=== PATIENT | male | born 1965 ===

== ENCOUNTER 2018-03-20 16:35 | Emergency (ER) | payer BC ==
[2018-03-20 16:54] VITALS: BMI 29.7
[2018-03-20 16:59] VITALS: RESP 16; TEMP 98.9
--- NOTE | 2018-03-20 18:05 | C.PDOC ---
History Of Present Illness 52 y/o male presents to ED with c/o urinary frequency, urinary hesitation and dysuria for 2 days. Patient reports he recently had colonoscopy with negative findings and blood work that showed elevated PSA. Patient denies abdominal pain , flank pain, nausea, vomiting, diarrhea or any other complaints at this time. Time Seen by Provider: 03/20/18 17:26 Chief Complaint (Nursing): Male Genitourinary History Per: Patient History/Exam Limitations: no limitations Onset/Duration Of Symptoms: Days Current Symptoms Are (Timing): Still Present Associated Symptoms: Urinary Symptoms Past Medical History Reviewed: Historical Data, Nursing Documentation, Vital Signs Vital Signs: Last Vital Signs Temp 98.9 F 03/20/18 16:56 Pulse 84 03/20/18 16:56 Resp 16 03/20/18 16:56 BP 129/79 03/20/18 16:56 Pulse Ox 97 03/20/18 18:07 - Medical History PMH: Kidney Stones Surgical History: No Surg Hx Family History: States: No Known Family Hx - Social History Hx Alcohol Use: No Hx Substance Use: No Review Of Systems Except As Marked, All Systems Reviewed And Found Negative. Genitourinary: Positive for: Dysuria, Frequency Physical Exam - Physical Exam Appears: Non-toxic, No Acute Distress Skin: Warm, Dry, No Rash Head: Atraumatic, Normacephalic Eye(s): bilateral: Normal Inspection Oral Mucosa: Moist Cardiovascular: Rhythm Regular Respiratory: Normal Breath Sounds, No Rales, No Rhonchi, No Wheezing Gastrointestinal/Abdominal: Soft, No Tenderness, No Guarding, No Rebound Male Genital: Circumcised, Other (Patient has 1 teste noted to be descended. No complications or signs of infection) Neurological/Psych: Oriented x3, Normal Speech, Normal Cognition ED Course And Treatment - Laboratory Results Result Diagrams: 03/20/18 18:23 O2 Sat by Pulse Oximetry: 97 (RA) Pulse Ox Interpretation: Normal Medical Decision Making Medical Decision Making: Assessment: Dysuria 1900 - case s/o to Dr. Phillips at 1900 pending labs, ultrasound, reevaluation and disposition. Disposition - Disposition Disposition Time: 19:00 Condition: STABLE Forms: [facility] (Albanian) - Clinical Impression Clinical Impression: Dysuria - Scribe Statement The provider has reviewed the documentation as recorded by the Scribe Laura Ibarra All medical record entries made by the Scribe were at my direction and personally dictated by me. I have reviewed the chart and agree that the record accurately reflects my personal performance of the history, physical exam, medical decision making, and the department course for this patient. I have also personally directed, reviewed, and agree with the discharge instructions and disposition. Physician Patient Turnover Patient Signed Over To: Jie Phillips Handoff Comments: pending labs, ultrasound, reevaluation and disposition
[2018-03-20 18:29] LABS: BASO % 0.5 % (0.0-2.0); EOS # 0.1 K/uL (0.0-0.7); EOS % 1.4 % (0.0-4.0); HEMOGLOBIN 13.1 g/dL (12.0-18.0); LYMPH % 30.1 % (20.0-40.0); MEAN CELL VOLUME 85.7 fL (80.0-94.0); MEAN CORPUSCULAR HEMOGLOBIN 29.1 pg (27.0-31.0); MEAN CORPUSCULAR HGB CONC 33.9 g/dL (33.0-37.0); MEAN PLATELET VOLUME 8.2 fL (7.2-11.7); MONO # 0.5 K/uL (0.0-0.8); MONO % 7.5 % (0.0-10.0); NEUT % 60.5 % (50.0-75.0); NRBC % 0.1 % (0.0-2.0); RBC 4.52 Mil/uL (4.40-5.90); RED CELL DISTRIBUTION WIDTH 14.1 % (11.5-14.5); WHITE BLOOD COUNT 6.6 K/uL (4.8-10.8)
[2018-03-20 18:34] LABS: URINE BACTERIA RARE (<OCC); URINE BILIRUBIN NEGATIVE (NEGATIVE); URINE BLOOD 3+ (NEGATIVE); URINE CLARITY Hazy (Clear); URINE COLOR Yellow (YELLOW); URINE GLUCOSE (UA) NORMAL (Normal); URINE LEUKOCYTE ESTERASE NEG Leu/uL (Negative); URINE PROTEIN 1+ mg/dL (NEGATIVE); URINE UROBILINOGEN NORMAL mg/dL (0.2-1.0)
[2018-03-20 18:50] LABS: ALB/GLOB RATIO 1.7 (1.0-2.1); ALBUMIN 4.5 g/dL (3.5-5.0); ALT/SGPT 67 U/L (21-72); AST/SGOT 34 U/L (17-59); BLOOD UREA NITROGEN 18 mg/dL (9-20); CALCIUM 9.4 mg/dl (8.6-10.4); GFR NON-AFRICAN AMERICAN > 60; LIPASE 73 U/L (23-300)
[2018-03-20 19:18] VITALS: BP 122/83; PULSE 80; O2SAT 98
--- NOTE | 2018-03-21 16:13 | US ---
Date of service: 03/20/2018 HISTORY: testicular pain TECHNIQUE: Realtime sonography through the scrotum with color and doppler flow. COMPARISON: None Available. 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 RIGHT EPIDIDYMIS: Surgically absent. LEFT TESTICLE: Measures 5 x 1 x 2.0 x 3.5 cm. Normal echotexture and flow. LEFT EPIDIDYMIS: Epididymal head measures 0.8 x 0.9 x 1.2 cm. A small 5 mm complex epididymal head cyst is seen without hyperemic epididymal changes to suggest epididymitis at this time. HYDROCELE: Minimal left hydrocele identified with limited debris in suspension. VARICOCELE: Borderline or early left hydrocele seen laterally. Venous caliber does not reach size criteria for last varicocele at this time. OTHER FINDINGS: None. IMPRESSION: 1. Surgically absent right testicle. 2. No evidence of left testicular torsion, cyst or mass. 3. Minimal left complex hydrocele. 4. Septated small left epididymal cyst. Concordant preliminary report from [facility], 03/20/2018.
== END 2018-03-20 19:40 | disposition home or self-care (01) ==
LOC: C.ER 16:35
DX: R30.0 Dysuria (principal)